=== PATIENT | female | born 1945 | race Caucasian/White ===

== ENCOUNTER 2017-08-19 07:14 | Day surgery (SDC) | payer OTHER, BC ==
[2017-08-18 10:01] VITALS: BMI 39.0
[2017-08-19] MEDS ORDERED: LIDOCAINE HCL/PF 2% SDV 5ML VIAL ONE (08:17)
[2017-08-19] MEDS ORDERED: PROPOFOL 20 ML ONE ×2 (08:18)
[2017-08-19] MEDS ORDERED: SUCCINYLCHOLINE CHLORIDE 200 MG/10 ML VIAL ONE (08:18)
[2017-08-19 08:56] VITALS: TEMP 98
[2017-08-19 09:01] VITALS: PULSE 63
[2017-08-19 09:43] VITALS: BP 160/66
--- NOTE | 2017-08-20 14:39 | PATH ---
Surgical Pathology Report Patient Name: DIANN ANDRE [facility]. Rec. #: [id number] /Age/Gender: 1945 (Age: 72) / F Account: [id number] Location: U-ENDOSCOPY Taken: 08/19/2017 Received: 08/19/2017 Reported: 08/20/2017 Physicians: Mady Dykes M.D. Specimen(s) Received A: BX DUODENUM B: BX ANTRUM C: POLYP AND BX GASTRIC BODY Clinical History Preoperative diagnosis: Anemia Postoperative diagnosis: Gastric body polyp Final Diagnosis A. DUODENUM, SECOND PORTION AND BULB, BIOPSY: DUODENAL MUCOSA WITHOUT SIGNIFICANT PATHOLOGIC FINDINGS. B. STOMACH, ANTRUM, BIOPSY: GASTRIC ANTRAL MUCOSA WITH MILD CHRONIC GASTRITIS. IMMUNOHISTOCHEMICAL STAIN FOR H. PYLORI IS NEGATIVE. C. STOMACH, BODY, POLYP, BIOPSY: FUNDIC GLAND POLYP. SEPARATE FRAGMENT OF GASTRIC BODY MUCOSA WITH MILD CHRONIC GASTRITIS. IMMUNOHISTOCHEMICAL STAIN FOR H. PYLORI IS NEGATIVE. Electronically Signed Tennille Adamson M.D. Gross Description A. Received in formalin, labeled "biopsy duodenum second portion and bulb" are 2 mohamud, irregular portions of soft tissue measuring 0.3 and 0.4 cm. in greatest dimension. The specimens are submitted in toto in one cassette. B. Received in formalin, labeled "biopsy antrum" are 2 mohamud, irregular portions of soft tissue averaging 0.2 cm. in greatest dimension. The specimens are submitted in toto in one cassette. C. Received in formalin labeled "polyp and biopsy gastric body," is a 0.8 x 0.7 x 0.4 cm mohamud, polypoid portion of soft tissue. Also received within the same container is a 0.4 cm in greatest dimension mohamud soft tissue fragment. The specimen is entirely submitted in 2 cassettes as follows: 1-trisected polyp; 2-separately received soft tissue fragment. 08/19/201708/19/2017
== END 2017-08-19 10:05 | disposition home or self-care (01) ==
LOC: JASU-ENDO 07:14
PROVIDERS: ATTEND Internal Medicine Gastroenterology
PROC: 0DB98ZX Excision of Duodenum, Via Natural or Artificial Opening Endoscopic, Diagnostic (ICD-10-PCS; 2017-08-19)
PROC: 0DB68ZX Excision of Stomach, Via Natural or Artificial Opening Endoscopic, Diagnostic (ICD-10-PCS; principal; 2017-08-19 08:00)
DX: D50.9 Iron deficiency anemia, unspecified (principal); K31.7 Polyp of stomach and duodenum
CPT/HCPCS: 88305-TC; 88342-TC